=== PATIENT | female | born 1980 | race Asian ===

== ENCOUNTER 2017-06-09 09:42 | Emergency (ER) | payer OTHER ==
[~2017-06-09] VITALS: Ht 157.5 cm; Wt 60.8 kg
[2017-06-09 09:58] VITALS: BP 161/106
[2017-06-09 11:18] VITALS: BP 128/77
== END 2017-06-09 11:19 | disposition home or self-care (01) ==
LOC: MED 09:42
DX: R55 Syncope and collapse (principal); R42 Dizziness and giddiness; Z90.89 Acquired absence of other organs
CPT/HCPCS: 81002; 81025; 99283